=== PATIENT | female | born 1975 | race Two or more races ===

== ENCOUNTER 2024-02-13 06:53 | Outpatient (CLI) | payer OTHER | END 2024-02-13 07:02 | disposition home or self-care (01) | LOC: LAB 06:53 | PROVIDERS: ATTEND Anesthesiology Pain Medicine | DX: J11.1 Influenza due to unidentified influenza virus with other respiratory manifestations (principal); A49.3 Mycoplasma infection, unspecified site; Z20.822 Contact with and (suspected) exposure to COVID-19 ==